=== PATIENT | female | born 1940 | race Caucasian/White ===

== ENCOUNTER 2017-08-28 01:53 | Inpatient (IN) | payer OTHER ==
[~2017-08-28] VITALS: Ht 157.5 cm; Wt 78.0 kg
[~2017-08-28 01:53] MED LIST: AMLODIPINE BESYL5 MG PO; ASPIR 8181 M1 PO; CRESTOR40 MG PO; CRESTOR5 MG PO; Ecotrin PO; GABAPENTIN100 MG PO; LEVAQUIN500 MG PO; LISINOPRIL10 MG PO; LOPRESSOR25 MG PO; LUNESTA2 MG PO; METAXALONE800 MG PO; MULTIPLE VITAM1 EAC1 PO; NORVASC5 MG PO; Ocu-Omega PO; PLAVIX75 MG PO; PRILOSEC20 MG PO; PROMETHAZINE12.5 M1 PO; RITUXAN10 MG/ML IV; Rocaltrol PO; STOOL SOFTENER100 MG PO; TAMIFLU75 MG PO; TOPROL XL25 MG PO; TRAMADOL HCL50 MG PO; TYLENOL EXTRA500 MG PO; Toprol XL PO; ULTRAM50 MG PO; VALIUM5 MG PO; VICODIN 5-3001 EACH PO; VITAMIN D2 PO; VITAMIN D250000 UNIT PO; WOMEN S PO; ZESTRIL,PRINIVI10 M1 PO; [UNRECOGNIZED DRUG - OTHER]; [UNRECOGNIZED DRUG - OTHER]; [UNRECOGNIZED DRUG - OTHER] PO; [UNRECOGNIZED DRUG - OTHER] PO
[2017-08-28 02:33] LABS: APPEARANCE SL.HAZY ((CLEAR)); BILIRUBIN NEGATIVE; BLOOD NEGATIVE; COLOR YELLOW ((YELLOW)); GLUCOSE (STRIP) NEGATIVE; KETONES NEGATIVE; LEUKOCYTES NEGATIVE; NITRITE NEGATIVE; PROTEIN (STRIP) 30; SPECIFIC GRAVITY 1.018 (1.000-1.030); UROBILINOGEN 0.2 MG/DL (0.2-1.0)
[2017-08-28 02:35] LABS: BASOPHIL (%) 0.4 % (0-1); EOSINOPHIL (%) 1.1 % (0-5); EOSINOPHIL COUNT 0.1 K/uL (0-0.3); HEMATOCRIT 37.2 % (36.0-46.0); HEMOGLOBIN 12.5 G/DL (11.9-15.5); IMMATURE GRANULOCYTE (%) 0.4 % (0.0-0.7); LYMPHOCYTE (%) 6.3 % (15-42); LYMPHOCYTE COUNT 0.6 K/uL (1.0-2.8); MCH 29.2 PG (29.0-34.0); MCHC 33.6 G/DL (30.0-36.0); MCV 86.9 FL (83-99); MONOCYTE COUNT 1.4 K/uL (0-0.8); NEUTROPHIL (%) 76.8 % (45-76); NEUTROPHIL COUNT 7.1 K/uL (1.8-6.4); PLATELET COUNT 185 K/uL (156-360); RBC DIS.WIDTH-CV 13.6 % (11.8-14.6); RBC DIS.WIDTH-SD 43.1 % (39-53); RED BLOOD COUNT 4.28 M/uL (3.80-5.20); WHITE BLOOD COUNT 9.2 K/uL (4.1-10.2)
[2017-08-28 02:35] LABS: BACTERIA NONE SEEN /HPF; EPITHELIAL CELLS RARE /HPF; MUCUS TRACE /LPF; RED BLOOD CELLS 0-5 /HPF (0-5); UCUL ADDED? NO; WHITE BLOOD CELLS 0-5 /HPF (0-5)
[2017-08-28 02:44] LABS: CHLORIDE 106 mEq/L (99-109); POTASSIUM 4.2 mEq/L (3.7-5.4); SODIUM 136 mEq/L (136-147)
[2017-08-28 02:46] LABS: GLUCOSE 122 mg/dL (70-99)
[2017-08-28 02:50] LABS: GFR ESTIMATE (CALCULATED) 57 mL/min/
[2017-08-28 02:51] LABS: UREA NITROGEN (BUN) 13 mg/dL (9-23)
[2017-08-28 02:54] LABS: TROP-I INTERPRETATION NEGATIVE; TROPONIN-I 0.01 ng/mL (0.0-0.30)
[2017-08-28] MEDS ORDERED: METOPROLOL SUCC50 MG PO (04:04)
[2017-08-28] MEDS ORDERED: PREDNISONE5 MG PO (04:06)
[2017-08-28] MEDS ORDERED: SIMVASTATIN20 MG PO (04:06)
[2017-08-28] MEDS ORDERED: PANTOPRAZOLE SO40 MG PO (04:07)
[2017-08-28] MEDS ORDERED: ROPINIROLE HCL0.5 MG PO (04:07)
[2017-08-28] MEDS ORDERED: ERGOCALCIF50000 UNIT PO (04:08)
[2017-08-28] MEDS ORDERED: MACU SUPPORT PO (04:10)
[2017-08-28 09:46] VITALS: BP 136/69
[2017-08-28 09:57] LABS: TROP-I INTERPRETATION NEGATIVE; TROPONIN-I 0.02 ng/mL (0.0-0.30)
[2017-08-28 12:40] VITALS: BP 113/59
[2017-08-28 15:08] LABS: TROP-I INTERPRETATION NEGATIVE; TROPONIN-I < 0.01 ng/mL (0.0-0.30)
[2017-08-28 17:45] VITALS: BP 133/63
[2017-08-28 19:26] VITALS: BP 100/77
[2017-08-28 23:59] VITALS: BP 102/66
[2017-08-29 04:10] VITALS: BP 111/62
[2017-08-29 05:36] LABS: HEMATOCRIT 29.2 % (36.0-46.0); MCH 29.2 PG (29.0-34.0); MCHC 32.5 G/DL (30.0-36.0); MCV 89.8 FL (83-99); PLATELET COUNT 163 K/uL (156-360); RBC DIS.WIDTH-CV 13.8 % (11.8-14.6); RBC DIS.WIDTH-SD 45.7 % (39-53); WHITE BLOOD COUNT 4.3 K/uL (4.1-10.2)
[2017-08-29 05:37] LABS: HEMOGLOBIN 9.5 G/DL (11.9-15.5); RED BLOOD COUNT 3.25 M/uL (3.80-5.20)
[2017-08-29 06:46] LABS: ALBUMIN 2.8 G/DL (3.2-4.8); ALKALINE PHOSPHATASE 50 IU/L (3-129); ALT (GPT) 10 IU/L (3-49); AST (GOT) 15 IU/L (2-34); CHLORIDE 111 MEQ/L (99-109); GFR ESTIMATE (CALCULATED) 57 mL/min/; GLUCOSE 182 mg/dL (70-99); POTASSIUM 3.8 MEQ/L (3.7-5.4); SODIUM 141 MEQ/L (136-147); TOTAL BILIRUBIN 0.3 MG/DL (0.0-1.0); TOTAL PROTEIN 4.8 G/DL (6.4-8.3); UREA NITROGEN (BUN) 14 mg/dL (9-23)
[2017-08-29 08:10] VITALS: BP 145/69
[2017-08-29 11:55] VITALS: BP 114/61
[2017-08-29 16:26] VITALS: BP 146/55
[2017-08-30 00:22] VITALS: BP 120/63
[2017-08-30 04:16] VITALS: BP 121/65
[2017-08-30 04:57] LABS: BASOPHIL (%) 0.2 % (0-1); EOSINOPHIL (%) 0 % (0-5); IMMATURE GRANULOCYTE (%) 0.2 % (0.0-0.7); LYMPHOCYTE (%) 15.9 % (15-42); LYMPHOCYTE COUNT 0.7 K/uL (1.0-2.8); MCH 29.1 PG (29.0-34.0); MCHC 33.3 G/DL (30.0-36.0); MCV 87.2 FL (83-99); MONOCYTE (%) 12.3 % (3-12); MONOCYTE COUNT 0.6 K/uL (0-0.8); NEUTROPHIL (%) 71.4 % (45-76); NEUTROPHIL COUNT 3.3 K/uL (1.8-6.4); PLATELET COUNT 162 K/uL (156-360); RBC DIS.WIDTH-CV 13.8 % (11.8-14.6); RBC DIS.WIDTH-SD 43.8 % (39-53); RED BLOOD COUNT 3.44 M/uL (3.80-5.20); WHITE BLOOD COUNT 4.6 K/uL (4.1-10.2)
[2017-08-30 05:12] LABS: CHLORIDE 112 mEq/L (99-109); POTASSIUM 3.6 mEq/L (3.7-5.4); SODIUM 141 mEq/L (136-147)
[2017-08-30 05:14] LABS: GLUCOSE 184 mg/dL (70-99)
[2017-08-30 05:18] LABS: CREATININE 0.7 mg/dL (0.6-1.3); GFR ESTIMATE (CALCULATED) > 59 mL/min/
[2017-08-30 05:19] LABS: UREA NITROGEN (BUN) 13 mg/dL (9-23)
[2017-08-30 07:41] VITALS: BP 138/71
[2017-08-30 12:21] VITALS: BP 122/57
[2017-08-30 18:26] VITALS: BP 141/79
[2017-08-30 19:14] VITALS: BP 113/66
[2017-08-31] VITALS (7 sets, daily range): BP systolic 129–179; BP diastolic 72–85
[2017-08-31 06:11] LABS: CHLORIDE 105 MEQ/L (99-109); CREATININE 0.7 MG/DL (0.6-1.3); GFR ESTIMATE (CALCULATED) > 59 mL/min/; GLUCOSE 140 mg/dL (70-99); POTASSIUM 3.5 MEQ/L (3.7-5.4); SODIUM 140 MEQ/L (136-147); UREA NITROGEN (BUN) 14 mg/dL (9-23)
[2017-09-01 04:15] VITALS: BP 133/75
[2017-09-01 07:38] VITALS: BP 141/69
[2017-09-01] MEDS ORDERED: PREDNISONE10 MG PO (08:52)
[2017-09-01] MEDS ORDERED: OSELTAMIVIR PHO30 MG PO (08:52)
== END 2017-09-01 12:05 | disposition home health service (06) | DRG 871 ==
LOC: EME → EDBD 01:53 → EDOF 03:26 → 4EAST 03:26 → ENRESERV 03:46 → CANRESERV 04:00 → EDOF 07:29 → ENRESERV 07:34 → 4EAST 08:27 → ENRESERV 08-31 22:07 → 3EAST 08-31 23:21
PROVIDERS: Emergency Medicine; Internal Medicine; Physician Assistant
DX: A41.89 Other specified sepsis (principal); R65.20 Severe sepsis without septic shock; J96.21 Acute and chronic respiratory failure with hypoxia; J10.1 Influenza due to other identified influenza virus with other respiratory manifestations; J20.9 Acute bronchitis, unspecified; J84.10 Pulmonary fibrosis, unspecified; E83.51 Hypocalcemia; E86.0 Dehydration; E11.9 Type 2 diabetes mellitus without complications; E78.5 Hyperlipidemia, unspecified; G25.81 Restless legs syndrome; G47.33 Obstructive sleep apnea (adult) (pediatric); I10 Essential (primary) hypertension; I25.10 Atherosclerotic heart disease of native coronary artery without angina pectoris; K21.9 Gastro-esophageal reflux disease without esophagitis; F41.9 Anxiety disorder, unspecified; E66.9 Obesity, unspecified; M06.9 Rheumatoid arthritis, unspecified; Z79.02 Long term (current) use of antithrombotics/antiplatelets; I25.2 Old myocardial infarction; Z79.82 Long term (current) use of aspirin; Z86.711 Personal history of pulmonary embolism; Z86.718 Personal history of other venous thrombosis and embolism; Z99.81 Dependence on supplemental oxygen; Z68.31 Body mass index [BMI] 31.0-31.9, adult; Z87.891 Personal history of nicotine dependence
CPT/HCPCS: 71010; 71250; 80048; 80053; 81003; 82948; 83605; 84484; 85025; 85027; 87040; 87502; 93005; 94799; 99202; 99281; 99285; J0610; J0696; J1650; J1720; J1815; J1940; J2270; J2543; J3370; J7030; J7050; J7512

== ENCOUNTER 2017-12-19 19:18 | Inpatient (IN) | payer OTHER ==
[~2017-12-19] VITALS: Ht 157.5 cm; Wt 80.1 kg
[~2017-12-19 19:18] MED LIST changes: +ERGOCALCIF50000 UNIT PO; +MACUVITE EYE C1 EACH PO; +METOPROLOL SUCC50 MG PO; +OSELTAMIVIR PHO30 MG PO; +PANTOPRAZOLE SO40 MG PO; +PREDNISONE10 MG PO; +PREDNISONE5 MG PO; +ROPINIROLE HCL0.5 MG PO; +SIMVASTATIN20 MG PO
[2017-12-19 20:01] LABS: HEMATOCRIT 39.5 % (36.0-46.0); HEMOGLOBIN 13.3 G/DL (11.9-15.5); MCHC 33.7 G/DL (30.0-36.0); MCV 86.1 FL (83-99); PLATELET COUNT 213 K/uL (156-360); RBC DIS.WIDTH-CV 12.9 % (11.8-14.6); RED BLOOD COUNT 4.59 M/uL (3.80-5.20); WHITE BLOOD COUNT 8.8 K/uL (4.1-10.2)
[2017-12-19 20:10] LABS: CHLORIDE 107 mEq/L (99-109); POTASSIUM 4.4 mEq/L (3.7-5.4); SODIUM 140 mEq/L (136-147)
[2017-12-19 20:12] LABS: GLUCOSE 132 mg/dL (70-99)
[2017-12-19 20:16] LABS: GFR ESTIMATE (CALCULATED) 57 mL/min/
[2017-12-19 20:17] LABS: UREA NITROGEN (BUN) 11 mg/dL (9-23)
[2017-12-19] MEDS ORDERED: ZITHROMAX Z-PA250 MG PO (22:14)
[2017-12-19] MEDS ORDERED: PROVENTIL HFA6.7 GM IH (22:14)
[2017-12-19] MEDS ORDERED: PREDNISONE20 MG PO (22:14)
[2017-12-20] MEDS ORDERED: METFORMIN HCL500 MG PO (00:34)
[2017-12-20] MEDS ORDERED: CLOPIDOGREL75 MG PO (00:34)
[2017-12-20] MEDS ORDERED: TYLENOL EXTRA500 MG PO (00:37)
[2017-12-20 01:02] LABS: D-DIMER ELISA < 150.00 ng/mLDDU (<230)
[2017-12-20 01:38] VITALS: BP 165/84
[2017-12-20 07:17] VITALS: BP 134/60
[2017-12-20 11:08] VITALS: BP 146/67
[2017-12-20 15:28] VITALS: BP 139/81
[2017-12-20 19:25] VITALS: BP 145/75
[2017-12-20 23:56] VITALS: BP 122/58
[2017-12-21 04:04] VITALS: BP 125/58
[2017-12-21 08:06] VITALS: BP 128/58
[2017-12-21 11:33] VITALS: BP 124/62
[2017-12-21 16:53] VITALS: BP 108/62
[2017-12-21 20:17] VITALS: BP 127/60
[2017-12-22 00:13] VITALS: BP 112/65
[2017-12-22 04:43] VITALS: BP 108/63
[2017-12-22 07:02] VITALS: BP 126/60
[2017-12-22 11:10] VITALS: BP 122/58
[2017-12-22 13:35] LABS: BASOPHIL (%) 0.1 % (0-1); EOSINOPHIL (%) 0.1 % (0-5); HEMATOCRIT 40.1 % (36.0-46.0); HEMOGLOBIN 12.9 G/DL (11.9-15.5); IMMATURE GRANULOCYTE (%) 0.5 % (0.0-0.7); LYMPHOCYTE (%) 4.9 % (15-42); LYMPHOCYTE COUNT 0.7 K/uL (1.0-2.8); MCH 28.7 PG (29.0-34.0); MCHC 32.2 G/DL (30.0-36.0); MCV 89.1 FL (83-99); MONOCYTE (%) 1.7 % (3-12); MONOCYTE COUNT 0.2 K/uL (0-0.8); NEUTROPHIL (%) 92.7 % (45-76); NEUTROPHIL COUNT 12.6 K/uL (1.8-6.4); PLATELET COUNT 224 K/uL (156-360); RBC DIS.WIDTH-CV 13.2 % (11.8-14.6); RBC DIS.WIDTH-SD 42.7 % (39-53); WHITE BLOOD COUNT 13.5 K/uL (4.1-10.2)
[2017-12-22 14:33] LABS: CHLORIDE 104 MEQ/L (99-109); CREATININE 1.1 MG/DL (0.6-1.3); GFR ESTIMATE (CALCULATED) 51 mL/min/; POTASSIUM 4.5 MEQ/L (3.7-5.4); SODIUM 140 MEQ/L (136-147)
[2017-12-22 15:50] VITALS: BP 124/60
[2017-12-22 17:00] LABS: GLUCOSE 177 mg/dL (70-99)
[2017-12-22 17:06] LABS: UREA NITROGEN (BUN) 25 mg/dL (9-23)
[2017-12-22 23:28] VITALS: BP 116/67
[2017-12-23 07:39] VITALS: BP 125/67
[2017-12-23] MEDS ORDERED: AMOX TR-K CLV1 EAC4 PO (10:10)
[2017-12-23] MEDS ORDERED: PREDNISONE20 MG PO (10:10)
[2017-12-23] MEDS ORDERED: DUONEB 2.5-0.5 M3 ML AEROSOL (10:15)
[2017-12-23] MEDS ORDERED: AERONEB GO NEB1 EACH MC (10:15)
== END 2017-12-23 14:32 | disposition home health service (06) | DRG 196 ==
LOC: EME → EDBD 19:18 → 5SOUTH 12-20 00:13 → EDOF 12-20 00:13 → ENRESERV 12-20 00:15 → 5SOUTH 12-20 01:13 → ENPENDDIS 12-23 13:13 → 5SOUTH 12-23 14:32
PROVIDERS: Hospitalist; Physician Assistant
DX: J84.10 Pulmonary fibrosis, unspecified (principal); J96.21 Acute and chronic respiratory failure with hypoxia; J44.1 Chronic obstructive pulmonary disease with (acute) exacerbation; J20.9 Acute bronchitis, unspecified; J44.0 Chronic obstructive pulmonary disease with (acute) lower respiratory infection; G47.33 Obstructive sleep apnea (adult) (pediatric); Z99.81 Dependence on supplemental oxygen; Z91.19 Patient's noncompliance with other medical treatment and regimen; I25.10 Atherosclerotic heart disease of native coronary artery without angina pectoris; E11.9 Type 2 diabetes mellitus without complications; R42 Dizziness and giddiness; I10 Essential (primary) hypertension; E78.5 Hyperlipidemia, unspecified; M06.9 Rheumatoid arthritis, unspecified; K21.9 Gastro-esophageal reflux disease without esophagitis; G25.81 Restless legs syndrome; I25.2 Old myocardial infarction; F41.9 Anxiety disorder, unspecified; Z86.711 Personal history of pulmonary embolism; Z87.891 Personal history of nicotine dependence; Z79.02 Long term (current) use of antithrombotics/antiplatelets; Z79.82 Long term (current) use of aspirin; Z95.5 Presence of coronary angioplasty implant and graft; Z90.710 Acquired absence of both cervix and uterus
CPT/HCPCS: 71046; 80048; 82948; 83880; 85025; 85027; 85379; 87040; 87070; 87205; 94010; 94640; 94640 76; 94799; 99202; 99281; 99285; J1644; J1815; J2405; J2920; J2930; J7512

== ENCOUNTER 2018-04-14 23:32 | Emergency (ER) | payer OTHER ==
[~2018-04-14] VITALS: Ht 157.5 cm; Wt 78.3 kg
[~2018-04-14 23:32] MED LIST changes: +AERONEB GO NEB1 EACH MC; +AMOX TR-K CLV1 EAC4 PO; +CLOPIDOGREL75 MG PO; +DUONEB 2.5-0.5 M3 ML AEROSOL; +METFORMIN HCL500 MG PO; +PREDNISONE20 MG PO; +PROVENTIL HFA6.7 GM IH; +ZITHROMAX Z-PA250 MG PO
[2018-04-14 23:56] LABS: BASOPHIL (%) 0.6 % (0-1); BASOPHIL COUNT 0.1 K/uL (0-0.1); EOSINOPHIL (%) 1.3 % (0-5); EOSINOPHIL COUNT 0.1 K/uL (0-0.3); HEMATOCRIT 36.1 % (36.0-46.0); HEMOGLOBIN 12.2 G/DL (11.9-15.5); IMMATURE GRANULOCYTE (%) 0.3 % (0.0-0.7); LYMPHOCYTE (%) 15.2 % (15-42); LYMPHOCYTE COUNT 1.7 K/uL (1.0-2.8); MCH 29.2 PG (29.0-34.0); MCHC 33.8 G/DL (30.0-36.0); MCV 86.4 FL (83-99); MONOCYTE (%) 8.4 % (3-12); MONOCYTE COUNT 0.9 K/uL (0-0.8); NEUTROPHIL (%) 74.2 % (45-76); NEUTROPHIL COUNT 8.1 K/uL (1.8-6.4); PLATELET COUNT 235 K/uL (156-360); RBC DIS.WIDTH-SD 40.7 % (39-53); RED BLOOD COUNT 4.18 M/uL (3.80-5.20); WHITE BLOOD COUNT 10.9 K/uL (4.1-10.2)
[2018-04-15 00:23] LABS: CHLORIDE 104 MEQ/L (99-109); POTASSIUM 4.1 MEQ/L (3.7-5.4); SODIUM 135 MEQ/L (136-147)
[2018-04-15 00:29] LABS: CREATININE 1.3 MG/DL (0.6-1.3); GFR ESTIMATE (CALCULATED) 42 mL/min/; GLUCOSE 250 mg/dL (70-99); UREA NITROGEN (BUN) 18 mg/dL (9-23)
[2018-04-15 03:00] VITALS: BP 131/84
== END 2018-04-15 03:18 | disposition home or self-care (01) ==
LOC: EME → EDBD 23:32 → EME 23:32
PROVIDERS: Emergency Medicine
PROC: 0HQKXZZ Repair Right Lower Leg Skin, External Approach (ICD-10-PCS; principal; 2018-04-15)
DX: S81.811A Laceration without foreign body, right lower leg, initial encounter (principal); W45.8XXA Other foreign body or object entering through skin, initial encounter; E11.9 Type 2 diabetes mellitus without complications; Z79.84 Long term (current) use of oral hypoglycemic drugs; E78.5 Hyperlipidemia, unspecified; F41.9 Anxiety disorder, unspecified; I10 Essential (primary) hypertension; I25.2 Old myocardial infarction; K21.9 Gastro-esophageal reflux disease without esophagitis; Z79.02 Long term (current) use of antithrombotics/antiplatelets; Z88.5 Allergy status to narcotic agent; Z87.891 Personal history of nicotine dependence
CPT/HCPCS: 73590; 80048; 85025; 99281; 99285